=== PATIENT | male | born 1945 | race Caucasian/White ===

== ENCOUNTER 2019-06-10 01:39 | Inpatient (IN) | payer MEDICARE, OTHER, SELFPAY ==
[~2019-06-10] VITALS: Ht 165.1 cm; Wt 46.5 kg
[~2019-06-10 01:39] MED LIST: MIDAZOLAM 1 MG/ML, 5ML ONE; PROPOFOL 10 MG/ML, 100ML IV ONE; SUCCINYLCHOLINE 20 MG/ML, 10ML ONE
[2019-06-10] MEDS ORDERED: PROPOFOL 100 ML IV PRN ×2 (01:47→07:59)
[2019-06-10] MEDS ORDERED: SODIUM CHLORIDE 0.9% 1,000ML IVBOLUS ONE ×2 (02:00→03:00)
[2019-06-10] MEDS ORDERED: SUCCINYLCHOLINE 20 MG/ML, 10ML IVPush ONE (02:00)
[2019-06-10] MEDS ORDERED: ETOMIDATE 20 MG/10 ML IV ONE (02:00)
[2019-06-10 02:07] LABS: MEAN CORPUSCULAR HEMOGLOBIN 31.6 pg (27.5-34.5); MEAN CORPUSCULAR HGB CONC 33.1 g/dL (33.2-36.2); MEAN CORPUSCULAR VOLUME 95.6 fL (81-97); MEAN PLATELET VOLUME 9.6 fL (7.4-10.4); PLATELET COUNT 144 x10^3/uL (130-400); RED BLOOD COUNT 4.57 x10^6/uL (4.38-5.82); RED CELL DISTRIBUTION WIDTH 15.4 % (9.4-14.8)
[2019-06-10 02:15] LABS: ALANINE AMINOTRANSFERASE 26 U/L (12-78); ALBUMIN 2.4 g/dL (3.4-5.0); ANION GAP 12 mmol/L (5-15); CALCIUM 8.2 mg/dL (8.5-10.1); CHLORIDE 132 mmol/L (98-107); CREATININE 6.65 mg/dL (0.7-1.3)
[2019-06-10 02:16] LABS: INTERNATIONAL NORMALIZED RATIO 1.12 (0.93-1.1); PROTHROMBIN TIME 11.9 Seconds (9.6-11.5)
[2019-06-10 02:20] LABS: ALKALINE PHOSPHATASE 83 U/L (45-117); BILIRUBIN,TOTAL 2.4 mg/dL (0.2-1.0); TOTAL PROTEIN 6.7 g/dL (6.4-8.2)
[2019-06-10 02:26] LABS: MD YES
[2019-06-10 02:30] LABS: <PLATELET ESTIMATE> ADEQUATE; <PLT MORPHOLOGY> NORMAL PLT MORPH; ANISOCYTOSIS 1+; BAND#(MANUAL) 0.44 x10^3/uL; BANDS%(MANUAL) 8 % (0-7); LYMPH#(MANUAL) 1.05 x10^3/uL (1-3.4); LYMPHS% (MANUAL) 19 % (22-44); SEG#(MANUAL) 4.02 x10^3/uL (1.8-6.8); SEGS% (MANUAL) 73 % (42-75)
[2019-06-10] MEDS ORDERED: ASPIRIN 300 MG SUPP PR ONE (02:30)
[2019-06-10 02:33] LABS: SALICYLATE LEVEL < 1.7 mg/dL (2.8-20.0)
--- NOTE | 2019-06-10 02:34 | NUR ---
PT. TO CT AT 0215 ACCOMPANIED BY THIS RN AND RT.
[2019-06-10] MEDS ORDERED: SODIUM CHLORIDE 0.9% 1,000 ML IV ONE ×2 (02:41→03:33)
--- NOTE | 2019-06-10 02:45 | NUR ---
DR. OROSCO TO BS FOR CENTAL LINE PLACEMENT.
--- NOTE | 2019-06-10 02:50 | NUR ---
GRAYSON CANCHOLA VIA PIV AT THIS TIME PER DR. OROSCO VERBAL ORDER.
[2019-06-10] MEDS ORDERED: NOREPINEPHRINE 4 MG in SODIUM CHLORIDE 0.9% 246 ML IV PRN ×2 (03:00→05:00)
--- NOTE | 2019-06-10 03:01 | NUR ---
CENTRAL LINE IN PLACE AT THIS TIME. PEPPPING FOR ART LINE NOW.
[2019-06-10] MEDS ORDERED: PIPERACILLIN/TAZO/PMX 3.375GM 50 ML IVPB ONE (03:30)
[2019-06-10] MEDS ORDERED: VANCOMYCIN PER PHARMACY MC ONE (03:30)
--- NOTE | 2019-06-10 03:40 | NUR ---
ART LINE IN PLACE.
--- NOTE | 2019-06-10 03:48 | NUR ---
CENTRAL LINE PLACEMENT CONFIRMED BY DR. OROSCO VIA X-RAY. NOREPI DRIP CHANGED TO CENTRAL LINE FROM PIV AT THIS TIME.
--- NOTE | 2019-06-10 03:50 | NUR ---
NS INFUSING STOPPED PER DR. OROSCO FOR SODIUM OF 166
--- NOTE | 2019-06-10 03:51 | NUR ---
Christine rn: Pt son would like to leave contact chris. Collin:[phone]
[2019-06-10] MEDS ORDERED: PIPERACILLIN/TAZO/PMX 3.375GM 50 ML ONE (03:53)
[2019-06-10] MEDS ORDERED: VANCOMYCIN 800 MG in SODIUM CHLORIDE 0.9% 100 ML IV ONE (04:00)
--- NOTE | 2019-06-10 04:01 | NUR ---
NOREPI DECREASED TO 12MCG/MIN
[2019-06-10] MEDS ORDERED: LACTATED RINGERS 1,000 ML IV SCH (05:00)
[2019-06-10] MEDS ORDERED: ACETAMINOPHEN 650 MG SUPP PR PRN (05:00)
[2019-06-10] MEDS ORDERED: PHARMACY MAY ADJ FOR RENAL FX MC PRN (05:00)
[2019-06-10] MEDS ORDERED: PIPERACILLIN/TAZO/PMX 2.25GM 50 ML IV SCH (05:00)
--- NOTE | 2019-06-10 05:16 | NUR ---
CALLING REPORT TO GALINA EVANS.
[2019-06-10] MEDS ORDERED: D5%-0.45% NACL 1,000 ML IV SCH (05:30)
[2019-06-10] MEDS ORDERED: DEXTROSE 5% 1,000 ML IV SCH (05:30)
--- NOTE | 2019-06-10 05:46 | NUR ---
PT. TRANSPORTED TO UNIT. REPORTED NEW IV MAINTAINANCE FLUID ORDERS TO GALINA EVANS ORDERS WERE JUST PUT IN IMMEDIATLY PRIOR TO TRANSPORT.
[2019-06-10] MEDS ORDERED: LACTATED RINGERS 1,000 ML IVBOLUS ONE (06:00)
[2019-06-10] MEDS ORDERED: FENTANYL PF 100 MCG/2ML IVPush PRN (08:00)
[2019-06-10] MEDS ORDERED: LIDOCAINE-MPF 1%, 2ML ENDO PRN (08:00)
[2019-06-10] MEDS ORDERED: PHARMACY MAY ADJ FOR RENAL FX MC SCH (08:00)
[2019-06-10] MEDS ORDERED: AMPICILLIN/SULBACTAM 3 GM in SODIUM CHLORIDE 0.9% 100 ML IV SCH (08:00)
[2019-06-10] MEDS: SODIUM CHLORIDE 0.45% 1,000 ML IV SCH ×4 (08:12→22:57)
[2019-06-10] MEDS: PANTOPRAZOLE 40 MG IV IV SCH (10:07)
[2019-06-10] MEDS: ASPIRIN 325 MG TABLET PO/NG SCH (10:07)
[2019-06-10 12:26] LABS: CALCIUM 7.2 mg/dL (8.5-10.1); CREATININE 6.07 mg/dL (0.7-1.3)
[2019-06-10 12:31] LABS: ANION GAP 13 mmol/L (5-15); CHLORIDE 132 mmol/L (98-107)
[2019-06-10 14:43] LABS: MICROSCOPIC INDICATED
[2019-06-10 14:44] LABS: CULTURE INDICATED? YES
[2019-06-10 14:54] LABS: AMPHETAMINE SCREEN, URINE Negative (Negative); BARBITURATE SCREEN, URINE Negative (Negative); BENZODIAZEPINE SCREEN, URINE Positive (Negative); CANNABINOID SCREEN, URINE Negative (Negative); CHLORIDE,URINE RANDOM 15 mmol/L; POTASSIUM,URINE RANDOM 62 mmol/L; SODIUM,URINE RANDOM 32 mmol/L
[2019-06-10 14:55] LABS: COCAINE SCREEN, URINE Negative (Negative); METHADONE SCREEN, URINE Negative (Negative); OPIATE SCREEN, URINE Negative (Negative)
[2019-06-10 18:19] LABS: ALBUMIN 1.8 g/dL (3.4-5.0); ANION GAP 13 mmol/L (5-15); CALCIUM 7.5 mg/dL (8.5-10.1); CHLORIDE 131 mmol/L (98-107)
[2019-06-10 18:23] LABS: ALANINE AMINOTRANSFERASE 22 U/L (12-78); ALKALINE PHOSPHATASE 57 U/L (45-117); CREATININE 5.77 mg/dL (0.7-1.3); TOTAL PROTEIN 5.1 g/dL (6.4-8.2)
[2019-06-10] MEDS: NOREPINEPHRINE 4 MG in SODIUM CHLORIDE 0.9% 246 ML IV PRN (18:32)
[2019-06-10] MEDS: ATORVASTATIN 80 MG TABLET PO/NG SCH (20:30)
[2019-06-11] MEDS ORDERED: METOPROLOL 1 MG/ML, 5ML IVPush PRN
[2019-06-11] MEDS: SODIUM CHLORIDE 0.45% 1,000 ML IV SCH ×3 (02:52→10:30)
[2019-06-11 03:20] LABS: ALBUMIN 1.6 g/dL (3.4-5.0); ANION GAP 16 mmol/L (5-15); CALCIUM 7.4 mg/dL (8.5-10.1); CHLORIDE 125 mmol/L (98-107)
[2019-06-11 03:25] LABS: ALANINE AMINOTRANSFERASE 21 U/L (12-78); ALKALINE PHOSPHATASE 54 U/L (45-117); BILIRUBIN,TOTAL 1.6 mg/dL (0.2-1.0); CHOL/HDL RATIO 5.4; CHOLESTEROL, TOTAL 114 mg/dL (140-239); HDL CHOL % 18 % (26-37); HDL CHOLESTEROL (DIRECT) 21 mg/dL (40-60); LDL CHOLESTEROL,CALCULATED 72 mg/dL (54-169); LDL/HDL RATIO 3.4 (0.5-3.0); TOTAL PROTEIN 4.7 g/dL (6.4-8.2); TRIGLYCERIDES 107 mg/dL (50-200); VLDL CHOLESTEROL 21 mg/dL (0-25)
[2019-06-11 03:49] LABS: MEAN CORPUSCULAR HEMOGLOBIN 31.8 pg (27.5-34.5); MEAN CORPUSCULAR HGB CONC 33.4 g/dL (33.2-36.2); MEAN CORPUSCULAR VOLUME 95.4 fL (81-97); MEAN PLATELET VOLUME 10.2 fL (7.4-10.4); PLATELET COUNT 82 x10^3/uL (130-400); RED BLOOD COUNT 3.56 x10^6/uL (4.38-5.82); RED CELL DISTRIBUTION WIDTH 15.4 % (9.4-14.8)
[2019-06-11 04:00] VITALS: BP 113/63
[2019-06-11] MEDS ORDERED: DEXTROSE 50%, 50ML SYRINGE IVPush ONE (04:00)
[2019-06-11 04:26] LABS: MD YES
[2019-06-11 04:29] LABS: ANISOCYTOSIS 1+; BAND#(MANUAL) 1.66 x10^3/uL; BANDS%(MANUAL) 24 % (0-7); LYMPH#(MANUAL) 0.69 x10^3/uL (1-3.4); LYMPHS% (MANUAL) 10 % (22-44); MONOS#(MANUAL) 0.07 x10^3/uL (0.3-2.7); MONOS% (MANUAL) 1 % (2-9); SEG#(MANUAL) 4.49 x10^3/uL (1.8-6.8); SEGS% (MANUAL) 65 % (42-75)
[2019-06-11 04:30] LABS: <PLATELET ESTIMATE> DECREASED; <PLT MORPHOLOGY> NORMAL PLT MORPH
[2019-06-11] MEDS ORDERED: DEXTROSE 50%, 50ML SYRINGE IVPush PRN (06:30)
[2019-06-11] MEDS ORDERED: DEXTROSE 4 GM TAB.CHEW PO PRN (06:30)
[2019-06-11] MEDS ORDERED: GLUCAGON 1 MG IM PRN (06:30)
[2019-06-11] MEDS ORDERED: D5%-0.45NACL+KCL 20MEQ 1,000 ML IV SCH (09:00)
[2019-06-11] MEDS: NOREPINEPHRINE 4 MG in SODIUM CHLORIDE 0.9% 246 ML IV PRN (09:13)
[2019-06-11] MEDS: AMPICILLIN/SULBACTAM 3 GM in SODIUM CHLORIDE 0.9% 100 ML IV SCH (09:13)
[2019-06-11] MEDS: DEXTROSE 50%, 50ML SYRINGE IVPush PRN (09:32)
[2019-06-11] MEDS: SODIUM CHLORIDE FLUSH 10ML SYR IVF SCH ×2 (09:33→21:09)
[2019-06-11] MEDS: PANTOPRAZOLE 40 MG IV IV SCH (09:33)
[2019-06-11] MEDS: ASPIRIN 325 MG TABLET PO/NG SCH (09:33)
[2019-06-11] MEDS ORDERED: POTASSIUM CHLORIDE 40 MEQ in DEXTROSE 5% 100 ML IV ONE (10:00)
[2019-06-11] MEDS: DEXTROSE 10% 1,000 ML IV SCH ×2 (10:10→20:14)
[2019-06-11] MEDS ORDERED: POTASSIUM CHLORIDE 30 MEQ in SODIUM CHLORIDE 0.9% 100 ML IV ONE (18:00)
[2019-06-11] MEDS: KSCALE TO 4.5 IV SCH (21:00)
[2019-06-11] MEDS: ATORVASTATIN 80 MG TABLET PO/NG SCH (21:09)
[2019-06-11 21:32] LABS: ANION GAP 10 mmol/L (5-15); CALCIUM 7.3 mg/dL (8.5-10.1); CHLORIDE 124 mmol/L (98-107); CREATININE 4.08 mg/dL (0.7-1.3)
[2019-06-11] MEDS ORDERED: POTASSIUM CHLORIDE PMX 100 ML IV ONE (22:00)
[2019-06-12] MEDS: KSCALE TO 4.5 IV SCH ×2 (03:00→10:41)
[2019-06-12 03:47] LABS: ANION GAP 9 mmol/L (5-15); CALCIUM 6.9 mg/dL (8.5-10.1); CHLORIDE 124 mmol/L (98-107); CREATININE 3.82 mg/dL (0.7-1.3)
[2019-06-12 04:00] VITALS: BP 119/67
[2019-06-12 04:16] LABS: MEAN CORPUSCULAR HEMOGLOBIN 32.2 pg (27.5-34.5); MEAN CORPUSCULAR HGB CONC 33.8 g/dL (33.2-36.2); MEAN CORPUSCULAR VOLUME 95.2 fL (81-97); RED BLOOD COUNT 3.01 x10^6/uL (4.38-5.82); RED CELL DISTRIBUTION WIDTH 15.4 % (9.4-14.8)
[2019-06-12 04:40] LABS: MD YES
[2019-06-12 04:44] LABS: BAND#(MANUAL) 0.52 x10^3/uL; BANDS%(MANUAL) 8 % (0-7); EOS#(MANUAL) 0.13 x10^3/uL (0.0-0.4); EOS% (MANUAL) 2 % (1-7); LYMPH#(MANUAL) 0.13 x10^3/uL (1-3.4); LYMPHS% (MANUAL) 2 % (22-44); MONOS#(MANUAL) 0.07 x10^3/uL (0.3-2.7); MONOS% (MANUAL) 1 % (2-9); SEG#(MANUAL) 5.66 x10^3/uL (1.8-6.8); SEGS% (MANUAL) 87 % (42-75)
[2019-06-12 04:45] LABS: ANISOCYTOSIS 1+; ECHINOCYTES 1+; OVALOCYTES 1+; POLYCHROMASIA 1+; SCHISTOCYTES 1+
[2019-06-12 04:46] LABS: <PLATELET ESTIMATE> DECREASED; <PLT MORPHOLOGY> NORMAL PLT MORPH; MEAN PLATELET VOLUME 10.2 fL (7.4-10.4); PLATELET COUNT 69 x10^3/uL (130-400)
[2019-06-12] MEDS ORDERED: POTASSIUM CHLORIDE PMX 100 ML IV ONE ×3 (05:00→15:30)
[2019-06-12] MEDS: DEXTROSE 10% 1,000 ML IV SCH (07:18)
[2019-06-12] MEDS: AMPICILLIN/SULBACTAM 3 GM in SODIUM CHLORIDE 0.9% 100 ML IV SCH (09:25)
[2019-06-12] MEDS: PANTOPRAZOLE 40 MG IV IV SCH (09:25)
[2019-06-12] MEDS: ASPIRIN 325 MG TABLET PO/NG SCH (09:25)
[2019-06-12] MEDS: SODIUM CHLORIDE FLUSH 10ML SYR IVF SCH (09:26)
[2019-06-12] MEDS ORDERED: MORPHINE SULFATE IV SCH (15:27)
[2019-06-12] MEDS ORDERED: DEXTROSE 5% IV SCH (15:27)
[2019-06-12] MEDS ORDERED: MORPHINE 30MG/30ML PCA.SYR IV PRN (15:30)
[2019-06-12] MEDS ORDERED: LORazepam 2 MG/ML, 1ML IVPush PRN (15:30)
[2019-06-12] MEDS ORDERED: MORPHINE SULFATE 4 MG/ML, 1ML IVPush PRN ×2 (15:30)
[2019-06-12] MEDS ORDERED: SCOPOLAMINE PATCH, 1.5MG PATCH.TD72 TD PRN (15:30)
[2019-06-12] MEDS ORDERED: ONDANSETRON 2MG/ML, 2ML IVPush PRN (15:30)
[2019-06-12] MEDS: LORazepam 2 MG/ML, 1ML IVPush PRN (16:06)
[2019-06-12] MEDS: MORPHINE SULFATE 4 MG/ML, 1ML IVPush PRN ×3 (16:06→23:20)
[2019-06-13] MEDS: MORPHINE SULFATE 4 MG/ML, 1ML IVPush PRN ×2 (04:10→06:33)
[2019-06-13 08:00] VITALS: BP 101/53
[2019-06-13] MEDS: LORazepam 2 MG/ML, 1ML IVPush PRN (12:23)
[2019-06-15] MEDS: morphine SULFATE 100 MG in DEXTROSE 5% 90 ML IV SCH (10:07)
[2019-06-16] MEDS: morphine SULFATE 100 MG in DEXTROSE 5% 90 ML IV SCH ×2 (04:15→23:24)
[2019-06-17] MEDS: morphine SULFATE 100 MG in DEXTROSE 5% 90 ML IV SCH (14:52)
[2019-06-18] MEDS: morphine SULFATE 100 MG in DEXTROSE 5% 90 ML IV SCH ×2 (08:35→22:13)
[2019-06-18] MEDS: ATROPINE OPHTH SOLN 1%, 5ML PO PRN (15:06)
[2019-06-19] MEDS: ATROPINE OPHTH SOLN 1%, 5ML PO PRN ×5 (05:43→21:49)
[2019-06-19] MEDS: morphine SULFATE 100 MG in DEXTROSE 5% 90 ML IV SCH (16:16)
== END 2019-06-20 15:30 | disposition expired | DRG 871 ==
LOC: ED 03:04 → EDIP 03:55 → CCU 05:34 → 4NW 06-13 12:23
PROVIDERS: ADMIT Family Medicine; ATTEND Internal Medicine
PROC: 5A1945Z Respiratory Ventilation, 24-96 Consecutive Hours (ICD-10-PCS; principal; 2019-06-10)
PROC: 0BH17EZ Insertion of Endotracheal Airway into Trachea, Via Natural or Artificial Opening (ICD-10-PCS; 2019-06-10)
PROC: 02HV33Z Insertion of Infusion Device into Superior Vena Cava, Percutaneous Approach (ICD-10-PCS; 2019-06-10)
PROC: 0T9B70Z Drainage of Bladder with Drainage Device, Via Natural or Artificial Opening (ICD-10-PCS; 2019-06-10)
PROC: B548ZZA Ultrasonography of Superior Vena Cava, Guidance (ICD-10-PCS; 2019-06-10)
PROC: 03HY32Z Insertion of Monitoring Device into Upper Artery, Percutaneous Approach (ICD-10-PCS; 2019-06-10)
PROC: 4A133B1 Monitoring of Arterial Pressure, Peripheral, Percutaneous Approach (ICD-10-PCS; 2019-06-10)
PROC: 4A133J1 Monitoring of Arterial Pulse, Peripheral, Percutaneous Approach (ICD-10-PCS; 2019-06-10)
DX: A41.9 Sepsis, unspecified organism (principal); I21.4 Non-ST elevation (NSTEMI) myocardial infarction; N17.0 Acute kidney failure with tubular necrosis; J96.01 Acute respiratory failure with hypoxia; R65.21 Severe sepsis with septic shock; G93.41 Metabolic encephalopathy; E43 Unspecified severe protein-calorie malnutrition; J15.0 Pneumonia due to Klebsiella pneumoniae; J69.0 Pneumonitis due to inhalation of food and vomit; I63.511 Cerebral infarction due to unspecified occlusion or stenosis of right middle cerebral artery; E87.0 Hyperosmolality and hypernatremia; N39.0 Urinary tract infection, site not specified; M62.82 Rhabdomyolysis; E87.2 Acidosis; Z68.1 Body mass index [BMI] 19.9 or less, adult; Z99.11 Dependence on respirator [ventilator] status; B96.20 Unspecified Escherichia coli [E. coli] as the cause of diseases classified elsewhere; I10 Essential (primary) hypertension; I48.91 Unspecified atrial fibrillation; Z66 Do not resuscitate; Z51.5 Encounter for palliative care; E16.2 Hypoglycemia, unspecified; E87.6 Hypokalemia; E86.0 Dehydration; Z79.899 Other long term (current) drug therapy; Z78.1 Physical restraint status
CPT/HCPCS: 31500; 36430; 36600; 70450; 70544; 70547; 70551; 71045; 76770; 80048; 80053; 80061; 80307; 81001; 82140; 82436; 82550; 82570; 82803; 82962; 83036; 83605; 83735; 83880; 84132; 84133; 84145; 84300; 84443; 84478; 84484; 85025; 85610; 85730; 86705; 86706; 86803; 87040; 87070; 87077; 87081; 87086; 87186; 87205; 87340; 87806; 93005; 93306; 94002; 94003; 96361; 96374; 96375; 99292; G0378; J0295; J2250; J2543; J2704; J3370; J3480; J7060; C9113; G0475; J0330; J2060; J2270; J7030; J7050; J7120